=== PATIENT | female | born 1955 | race Caucasian/White ===

== ENCOUNTER 2017-11-21 17:34 | Emergency (ER) | payer MEDICAID ==
[~2017-11-21] VITALS: Ht 165.1 cm; Wt 90.7 kg
[~2017-11-21 17:34] MED LIST: ASPI81TA31 PO; CEFA1FRO IV; CITA20TA19 PO; DIVA250T4 PO; Docusate Sodium PO; ENOX40DI SQ; ERGO500040 PO; GLIM4TAB PO; Gabapentin PO; MAGN400O6 PO; MELO-105 PO; Metformin Hcl PO; PYRI100T6 PO; QUET25TA PO; SIMV40TA5 PO; SITA100T PO
[2017-11-21] MEDS ORDERED: CALC-15 PO (17:56)
[2017-11-21] MEDS ORDERED: CLON1TAB PO (17:56)
[2017-11-21] MEDS ORDERED: PIOG15TA8 PO (17:56)
[2017-11-21] MEDS ORDERED: ACET500C8 PO (17:56)
[2017-11-21] MEDS ORDERED: INSU100I26 SQ (17:56)
--- NOTE | 2017-11-21 19:06 | NUR ---
Received SBAR report from [facility].
[2017-11-21] MEDS ORDERED: KETOROLAC TROMETHAMINE 30 MG INJ IM ONE (19:15)
[2017-11-21] MEDS ORDERED: KETOROLAC TROMETHAMINE 30 MG INJ ONE (19:21)
[2017-11-21] MEDS ORDERED: KETOROLAC TROMETHAMINE 30 MG INJ IVP ONE (19:30)
--- NOTE | 2017-11-21 20:18 | NUR ---
Patient discharged to home in stable conditon. Written and verbal after care instructions given. Patient verbalizes understanding of instructions. Patient taken out of ER via wheelchair, accompanied patient to vehicle, assisted with transfer, VSS, no acute signs of distress, all belongings taken, daughter to drive patient via private vehicle.
[2017-11-21 20:20] VITALS: BP 136/60
== END 2017-11-21 20:21 | disposition home or self-care (01) ==
LOC: ER 17:34
DX: S06.0X0A Concussion without loss of consciousness, initial encounter (principal); M54.9 Dorsalgia, unspecified; M25.562 Pain in left knee; M25.561 Pain in right knee; I10 Essential (primary) hypertension; E11.9 Type 2 diabetes mellitus without complications; J45.909 Unspecified asthma, uncomplicated; Z88.0 Allergy status to penicillin; Z79.82 Long term (current) use of aspirin; Z79.84 Long term (current) use of oral hypoglycemic drugs; Z79.4 Long term (current) use of insulin; Z79.899 Other long term (current) drug therapy; W18.30XA Fall on same level, unspecified, initial encounter; Y93.89 Activity, other specified; Y92.89 Other specified places as the place of occurrence of the external cause; Y99.8 Other external cause status
CPT/HCPCS: 70450; 72072; 73560; A4663; J1885